=== PATIENT | female | born 1945 | race Caucasian/White ===

== ENCOUNTER 2017-04-09 07:45 | Inpatient (IN) ==
--- NOTE | 2017-04-08 20:51 | Discharge Summary ---
<Nataly Mazariegos L - Last Filed: 04/08/17 20:48> Date of Encounter: 04/08/17 - Discharge Diagnosis (1) Loosening of knee joint prosthesis Priority: Primary Status: Acute Qualifiers: Encounter type: initial encounter Qualified Code(s): T84.038A - Mechanical loosening of other internal prosthetic joint, initial encounter; Z96.659 - Presence of unspecified artificial knee joint (2) Atrial fibrillation Priority: Secondary Status: Acute Comments: On chronic anticoagulation - Xarelto 20mg - Continue this. Qualifiers: Atrial fibrillation type: unspecified Qualified Code(s): I48.91 - Unspecified atrial fibrillation (3) HTN (hypertension) Priority: Secondary Status: Chronic Qualifiers: Hypertension type: essential hypertension Qualified Code(s): I10 - Essential (primary) hypertension (4) Obesity Priority: Secondary Status: Chronic Qualifiers: Obesity type: unspecified obesity type Obesity severity: unspecified obesity severity Qualified Code(s): E66.9 - Obesity, unspecified (5) Chronic pain Priority: Secondary Status: Chronic Comments: Currently taking [place] 7.5/325 - QID - Last dose 03/18/17 - #120. Continue this for post-op pain control. Adding Compound cream. Qualifiers: Chronic pain type: other chronic pain Qualified Code(s): G89.29 - Other chronic pain - Discharge Medications Prescriptions: Gabapentin [Neurontin] 600 mg PO BID #8 tablet Gabapentin [Neurontin] 1,200 mg PO HS #3 tablet HYDROcodone/Acet 7.5/325 mg [[place] 7.5-325 mg] 1 tab PO Q4H PRN #18 tablet PRN Reason: Mild To Moderate Pain Home Medications: Lidocaine Patch [Lidoderm 5% patch] 1 each TP DAILY #30 adh..patch 04/08/17 [Rx] Cyprohepatdine [Periactin] 4 mg PO HS 04/09/17 [History] Diltiazem CD (24hr) [Cardizem CD] 180 mg PO DAILY 04/09/17 [History] Levothyroxine [Synthroid] 112 mcg PO 0630 04/09/17 [History] Metoprolol [Lopressor] 25 mg PO BID 04/09/17 [History] Pantoprazole Sodium [Protonix] 40 mg PO DAILY 04/09/17 [History] Rivaroxaban [Xarelto] 20 mg PO HS 04/09/17 [History] hydroCHLOROthiazide [Hydrochlorothiazide] 25 mg PO DAILY 04/09/17 [History] Gabapentin [Neurontin] 1,200 mg PO HS #3 tablet 04/10/17 [Rx] Gabapentin [Neurontin] 600 mg PO BID #8 tablet 04/10/17 [Rx] HYDROcodone/Acet 7.5/325 mg [[place] 7.5-325 mg] 1 tab PO Q4H PRN #18 tablet 04/10 [Rx] Allergies/Adverse Reactions: Allergies Betaine Allergy (Verified 04/09/17 08:38) Blister codeine Allergy (Verified 04/09/17 08:38) Nausea meperidine [From Demerol] Allergy (Verified 04/09/17 08:38) Dizziness Sulfa (Sulfonamide Antibiotics) Allergy (Verified 04/09/17 08:38) Rash Primary care physician: Moon Thrasher - Patient Status Disposition: Transfer Inpatient Rehab Fac Condition: Good - Discharge Instructions Follow Up With: Moon Thrasher [Primary Care Provider] - - Hospital Course Hospital course: Ms. Lee is a 71 year old female - Time Spent with Patient Total time spent providing and/or coordinating discharge services: <Abelino Cavanaugh - Last Filed: 04/11/17 13:39> Date of Encounter: 04/11/17 Time of Encounter: 13:38 - Discharge Diagnosis (1) Loosening of knee joint prosthesis Priority: Primary Status: Acute Qualifiers: Encounter type: subsequent encounter Qualified Code(s): T84.038D - Mechanical loosening of other internal prosthetic joint, subsequent encounter; Z96.659 - Presence of unspecified artificial knee joint (2) Atrial fibrillation Priority: Secondary Status: Acute Qualifiers: Atrial fibrillation type: unspecified Qualified Code(s): I48.91 - Unspecified atrial fibrillation (3) HTN (hypertension) Priority: Secondary Status: Chronic Qualifiers: Hypertension type: essential hypertension Qualified Code(s): I10 - Essential (primary) hypertension (4) Obesity Priority: Secondary Status: Chronic Qualifiers: Obesity type: unspecified obesity type Obesity severity: unspecified obesity severity Qualified Code(s): E66.9 - Obesity, unspecified (5) Chronic pain Priority: Secondary Status: Chronic Qualifiers: Chronic pain type: other chronic pain Qualified Code(s): G89.29 - Other chronic pain (6) Acute blood loss anemia Priority: Primary Status: Acute Primary care physician: Moon Thrasher - Patient Status Functional capacity at discharge: uses cane/walker Overall status at discharge: patient is progressing back to baseline - Hospital Course Hospital course: Ms. Lee is a 71 year old female The patient had an uneventful postoperative course. They received antibiotics and physical therapy and were discharged in stable condition. There will follow -up in the office in 2 weeks. Aspirin DVT prophylaxis - Time Spent with Patient Total time spent providing and/or coordinating discharge services:
--- NOTE | 2017-04-09 08:08 | History & Physical Report ---
Date of Encounter: 04/09/17 Time of Encounter: 08:08 24 Hour HP Update - Instructions Instructions: If the History and Physical is less than 30 days old and was completed prior to A.M. admission and or procedure and has NOT been updated on calendar day of procedure please complete this update prior to performing procedure. - Update Patient reports changes in Medical Condition: No Changes in examination, assessment, or condition: No Changes in Medication: No Preop tests/diagnostics Reviewed: Yes Surgery Remains Indicated: Yes Consent for Planned Operative Procedure(s) Verified: Yes - Pre-Operative Checklist Preoperative Checklist Indicated: No Prophylactic Antibiotic Ordered: Yes Is VTE Prophylaxis Indicated?: Yes
[2017-04-09] MEDS ORDERED: Albuterol 2.5 MG/3 ML NEBULIZER IH ONE (08:15)
[2017-04-09] MEDS ORDERED: Ringers Solution, Lactated 1,000 ML IVC SCH (08:15)
--- NOTE | 2017-04-09 08:29 | Anesthesia Evaluation PreOp ---
Date of Encounter: 04/09/17 Time of Encounter: 08:26 - Past History Planned Operation: Right Total Knee Revision Cardiac History: HTN, Arrhythmia (A-Fib) Pulmonary History: Snore, NELLIE Dx DAYCARE ASSISTANT History: Denies Any Significant HX Other Medical History: Thyroid, GERD, Other (obesity BMI=44.4) Anesthesia History: No Prior Anesthetic Complications, Past Anesthesia Alcohol Use: none Drug use: none Medications and Allergies Lidocaine Patch [Lidoderm 5% patch] 1 each TP DAILY #30 adh..patch 04/08/17 [Rx] Cyprohepatdine [Periactin] 4 mg PO HS 04/09/17 [History] Diltiazem CD (24hr) [Cardizem CD] 180 mg PO DAILY 04/09/17 [History] Gabapentin [Neurontin] 1,200 mg PO HS 04/09/17 [History] Gabapentin [Neurontin] 600 mg PO BID 04/09/17 [History] HYDROcodone/Acet 7.5/325 mg [[place] 7.5-325 mg] 1 tab PO Q6H PRN 04/09/17 [ History] Levothyroxine [Synthroid] 112 mcg PO 0630 04/09/17 [History] Metoprolol [Lopressor] 25 mg PO BID 04/09/17 [History] Pantoprazole Sodium [Protonix] 40 mg PO DAILY 04/09/17 [History] Rivaroxaban [Xarelto] 20 mg PO HS 04/09/17 [History] hydroCHLOROthiazide [Hydrochlorothiazide] 25 mg PO DAILY 04/09/17 [History] Allergies Betaine Allergy (Verified 04/09/17 08:38) Blister codeine Allergy (Verified 04/09/17 08:38) Nausea meperidine [From Demerol] Allergy (Verified 04/09/17 08:38) Dizziness Sulfa (Sulfonamide Antibiotics) Allergy (Verified 04/09/17 08:38) Rash - Meds/Allergy Pre-op Review Medications Reviewed: Yes Allergies Reviewed: Yes Beta Blockers on Current Med List: Yes If Beta Blockers taken, Date/Time (Last Dose taken): 04/09/2017 at 0500 Anesthesia Results - Labs Laboratory Tests 04/04/17 04/04/17 04/04/17 10:30 12:05 12:05 WBC 8.4 Hgb 9.4 L Hct 30.1 L Plt Count 374 PT 10.4 INR 1.0 APTT 28.8 Sodium 141 Potassium 3.6 BUN 17 Creatinine 0.80 - Imaging EKG: report reviewed (04/04/2017 A-Fib) Anesthesia Exam O2 Sat Height 1.5 m Height 1.5 m Height 1.5 m Weight 99.79 kg Weight 99.79 kg Weight 99.79 kg O2 Sat by Pulse Oximetry 97 O2 Sat by Pulse Oximetry 97 Vital Signs Temp Pulse Resp BP Pulse Ox 98.1 F 79 18 131/68 97 04/09/17 08:06 04/09/17 08:06 04/09/17 08:06 04/09/17 08:06 04/09/17 08:06 Height: 4'11'' Weight: 220 lbs NPO (# of Hours): 8 Pain Scale: 0 Pain Scale Used: Numeric (1 - 10) - HEENT Pupil (Motor): EOMI Mallampati: II Teeth: Edentulous Denture Type: Upper: Complete Oral Opening: Greater than 3 - DAYCARE ASSISTANT LOC: Oriented DAYCARE ASSISTANT Motor: Normal RUE, Normal LUE, Normal RLE, Normal LLE, Normal Face DAYCARE ASSISTANT Sensory: Normal: RUE, LUE, RLE, LLE, Face - Cardiac Rhythm: Irregular Murmur: None - Pulmonary Breath Sounds: bilateral Clear Respiratory Effort: Symmetrical Anesthesia Assess/Plan ASA Score: 3 Modified [place] Scale for Level of Consciousness: Cooperative, oriented, and tranquil Anesthetic Plan: General, Regional Monitoring Plan: Standard Monitors Recovery Plan: PACU
[2017-04-09] MEDS ORDERED: *HR* Propofol 200 MG/20 ML VIAL IVP ONE (08:32)
[2017-04-09] MEDS ORDERED: Lidocaine -MPF 2% 2 ML VIAL ONE ×2 (08:32→08:35)
[2017-04-09] MEDS ORDERED: *HR* FentaNYL (PF) 100 MCG/2 ML VIAL ONE ×2 (08:32→11:36)
[2017-04-09] MEDS ORDERED: Dexamethasone 4 MG/ML VIAL ONE (08:35)
[2017-04-09] MEDS ORDERED: Ondansetron 4 MG/2 ML VIAL ONE (08:35)
[2017-04-09] MEDS ORDERED: CeFAZolin Pre 2,000 MG/100 ML 2,000 MG/100 ML BAG IVPB ONE (08:46)
[2017-04-09] MEDS ORDERED: Bupivacaine/Clonidine Syringe 1 EACH SYRINGE ONE (08:51)
--- NOTE | 2017-04-09 09:54 | Anesthesia Procedures ---
Date of Encounter: 04/09/17 Time of Encounter: Procedures: Anesthesia - Nerve Block Procedure Date: 04/09/17 Time: : Checklist: Correct Patient Identifier, Correct procedure, History checked Correct side: Right Blood Thinner: No Monitor Applied: EKG, BP, Pulse Oximetry Supplemental Oxygen via Nasal Cannula (L/min): 2 Sedation: Fentanyl (mcg): 100 Indication: Post Op Analgesia Pre-op Neuro Deficits: No Block Type: Femoral, Other Catheter placed: No Sterile Technique: Yes Ultrasound used: Yes Anatomy identified: Yes Visual spread of Local: Yes Neuro Stimulation: Yes Nerve Stimulator Range: 0.2 - 0.4 mA Blood on Needle Aspiration: No Smooth Injection of Local: Yes Pain with Injection of Local: No Prep: Chlorhexadine Needle: 22 x 50 mm Stimuplex, 21 x 100 mm Stimuplex Local: 0.25% Bupivicaine w/Clonidine 20 mcg/cc, Ropivacaine (0.5 % with 8 of decadron) Volume (cc): 30 Number of Attempts: 1 Complications: None/effective block Vitals: vss
[2017-04-09] MEDS ORDERED: ROPIVACAINE HCL/PF 0.5% 30 ML VIAL ONE (11:19)
[2017-04-09] MEDS ORDERED: Acetaminophen IV 1,000 MG/100 ML INFUS..BTL ONE (12:24)
[2017-04-09] MEDS ORDERED: EPHEDrine 50 MG/ML VIAL ONE (12:27)
[2017-04-09] MEDS ORDERED: Ketorolac 30 MG/ML VIAL ONE (12:35)
--- NOTE | 2017-04-09 12:38 | Orthopedic Operative Note ---
Date of procedure: 04/09/17 Pre-op diagnosis: Aseptic loosening right total knee Post-op diagnosis: same Procedure: Procedure: Right revision total knee Estimated blood loss: 300 Hardware: Metal and polyethylene replacement. Biomet SSK femur: 65, 16 x 180 Tibia: 67, 14 x 40 6 mm medial and lateral augments Constrained Alice: 22 Exam Under anesthesia: Full flexion-extension significant varus valgus instability Procedural Notes: Significant varus valgus instability grossly loose tibial component. Loose femoral component. Operative procedure: The patient was brought to the operating room and placed on the operating room table. After general anesthesia was administered the operative knee was examined. Findings were noted in the exam under anesthesia. The operative extremity was prepped and draped in sterile surgical fashion. The patient received IV antibiotics prior to skin incision. A standard midline incision was made centered over the patella through the old incision. The incision was made through the skin and subcutaneous tissue. A medial parapatellar tendon approach was performed. Care was taken to preserve tissue along the medial aspect of the patella. And to protect the patella tendon. The deep MCL was released off the medial tibia. The infra patella fat pad was excised. Fluid was encountered this was normal joint fluid, Cultures were obtained and gram . The knee was brought into flexion the poly-was removed. The interface between the patient's femoral component and distal femur were disrupted with a osteotome and oscillating saw. Femoral component was loose and removed without significant bone loss. Attention was then turned to the tibial component. The same technique was used to remove the tibial component by disrupting the interface between the patient's tibial component and the patients proximal tibia. The tibial component was loose, was removed without significant bone loss. The tibia was sized to a 67 was reamed up to a 14 x 40 Trial had good fit and fixation. The femur was sized to a 65, was reamed up to a 16 x 80 The finishing guide was seated and the box cut was made. The trial had good fit and fixation. Both trial components were seated and the 22 constrained Alice was seated and secured. Acquired to 6 mm augments medial and lateral for stability. The knee had full flexion and full extension with no instability. Patella had excellent patella tracking. The trial components were removed. The knee sat for 2 minutes with a Betadine saline solution. It was irrigated out with 2 L of pulse irrigation. The components were assembled on the back table, the tibia cemented first followed by the femur. The 22 constrained liner was seated and secure. The knee was brought to full extension while the cement hardened. After the cement hardened the knee was irrigated out again. The extensor mechanism was closed with a running #2 Fiberwire suture and a running #2 PDS suture. The deep tissue was irrigated and closed deep with #1 PDS suture superficially with 0 PDS suture. The skin was closed with skin hossein. The patient was placed in a sterile dressing and postoperative brace. They were extubated and transferred to recovery room in stable condition. Anesthesia: GETLavinia Surgeon: Abelino Cavanaugh Software Implementation Specialist: Nataly Mazariegos Condition: stable Disposition: PACU
[2017-04-09] MEDS: *HR* HYDROmorphone (PF) 1 MG/ML SYRINGE IVP PRN ×4 (13:10→13:40)
[2017-04-09] MEDS ORDERED: *HR* HYDROmorphone (PF) 1 MG/ML SYRINGE ONE ×3 (13:10→14:01)
[2017-04-09 13:50] LABS: Hematocrit 24.1 % (35.3-44.9)
[2017-04-09 13:51] LABS: Hemoglobin 7.6 g/dL (11.5-15.4)
[2017-04-09] MEDS ORDERED: Gabapentin 300 MG CAPSULE PO ONE (13:58)
[2017-04-09] MEDS ORDERED: *HR* HYDROmorphone (PF) 1 MG/ML SYRINGE IVP PRN (13:59)
[2017-04-09] MEDS ORDERED: *HR* HYDROmorphone 2 MG/ML SYRINGE IVP ONE (13:59)
--- NOTE | 2017-04-09 13:59 | Anesthesia Evaluation Post Op ---
Date of Encounter: 04/09/17 Time of Encounter: 13:57 - Vital Signs Vital Signs: Vital Signs/O2 Sat/Glucose, Most Recent Temp Pulse Resp BP Pulse Ox 97.2 F L 73 16 106/72 98 04/09/17 13:35 04/09/17 13:55 04/09/17 13:55 04/09/17 13:45 04/09/17 13:55 - Lungs Lungs: Clear Ascult./Percussion - Airway Airway: Non-obstructed - Cardiovascular Baseline Rhythm - Mental Status Mental Status: Alert & Oriented, Answers Appropriately - Pain Pain Scale: 5 (mild-moderate pain when awake, sleeping intermittenly) - Nausea Vomiting Nausea Vomiting: Not Present - Hydration Hydration: NPO Notes: 04/09/17 13:58 pt having mild to moderate anterior knee pain, sleeping intermittently, being controlled by IV dilaudid, 300mg Gabapentin ordered. - Discharge PostOp Status: Transfer Patient to floor
[2017-04-09] MEDS ORDERED: Gabapentin 300 MG CAPSULE PO STA (14:00)
[2017-04-09] MEDS ORDERED: MOM Conc 10 ML UD.LIQ PO PRN (14:31)
[2017-04-09] MEDS ORDERED: Temazepam 15 MG CAPSULE PO PRN (14:31)
[2017-04-09] MEDS ORDERED: Ondansetron 4 MG/2 ML VIAL IVP PRN (14:31)
[2017-04-09] MEDS ORDERED: Naloxone 0.4 MG/ML INJ IVP PRN (14:31)
[2017-04-09] MEDS ORDERED: Sennosides 8.6 MG TABLET PO PRN (14:31)
[2017-04-09] MEDS ORDERED: *HR* OxyCODONE Immed Rel 5 MG TABLET PO PRN (14:31)
[2017-04-09] MEDS: *HR* Rivaroxaban 10 MG TABLET PO SCH (16:09)
[2017-04-09] MEDS: *HR* OxyCODONE Immed Rel 5 MG TABLET PO PRN ×2 (16:11→21:32)
[2017-04-09] MEDS ORDERED: *HR* Enoxaparin 30 MG/0.3 ML SYRINGE SQ SCH (18:00)
[2017-04-09] MEDS: Ringers Solution, Lactated 1,000 ML IVC SCH (18:02)
[2017-04-09] MEDS: ceFAZolin 2,000 MG in D5% in Water 100 ML IVPB SCH (18:02)
[2017-04-09] MEDS ORDERED: Furosemide 20 MG/2 ML VIAL IVP PRN (18:10)
[2017-04-09] MEDS: Gabapentin 400 MG CAPSULE PO SCH (21:31)
[2017-04-09] MEDS: Gabapentin 300 MG CAPSULE PO SCH (21:31)
[2017-04-09] MEDS: Cyprohepatdine 4 MG TABLET PO SCH (22:20)
[2017-04-10] MEDS: ceFAZolin 2,000 MG in D5% in Water 100 ML IVPB SCH
[2017-04-10] MEDS: *HR* OxyCODONE Immed Rel 5 MG TABLET PO PRN ×5 (02:41→19:47)
[2017-04-10 06:36] LABS: Hematocrit 28.3 % (35.3-44.9)
[2017-04-10 06:37] LABS: Hemoglobin 9.2 g/dL (11.5-15.4)
--- NOTE | 2017-04-10 06:43 | Orthopedics Progress Note ---
Date of Encounter: 04/10/17 Time of Encounter: 06:43 - Assessment and Plan (1) Loosening of knee joint prosthesis Current Visit: Yes Status: Acute Qualifiers: Encounter type: subsequent encounter Qualified Code(s): T84.038D - Mechanical loosening of other internal prosthetic joint, subsequent encounter; Z96.659 - Presence of unspecified artificial knee joint (2) Atrial fibrillation Current Visit: Yes Status: Acute Qualifiers: Atrial fibrillation type: unspecified Qualified Code(s): I48.91 - Unspecified atrial fibrillation (3) HTN (hypertension) Current Visit: Yes Status: Chronic Qualifiers: Hypertension type: essential hypertension Qualified Code(s): I10 - Essential (primary) hypertension (4) Obesity Current Visit: Yes Status: Chronic Qualifiers: Obesity type: unspecified obesity type Obesity severity: unspecified obesity severity Qualified Code(s): E66.9 - Obesity, unspecified (5) Chronic pain Current Visit: Yes Status: Chronic Qualifiers: Chronic pain type: other chronic pain Qualified Code(s): G89.29 - Other chronic pain (6) Acute blood loss anemia Current Visit: Yes Status: Acute Subjective Interval history: Patient was seen this morning doing well without complaints. Afebrile vital signs stable. Operative extremity: Neurovascularly intact Dressing clean dry and intact Calves nontender Assessment and plan: Continue with postoperative care Hemoglobin 9.2 after 2 units Objective Vital signs: Vital Signs Temp Pulse Resp BP Pulse Ox 04/10/17 05:49 98.6 F 75 16 105/68 94 04/10/17 02:39 98 F 88 15 111/74 95 04/10/17 02:20 98 F 79 15 123/78 97 04/10/17 01:38 97.6 F 76 16 114/75 96 04/09/17 23:30 103/61 04/09/17 23:21 98.6 F 78 95/62 95 04/09/17 22:33 97.6 F 73 15 116/67 96 04/09/17 22:00 98.3 F 75 15 120/51 95 04/09/17 21:48 98.3 F 75 16 121/70 95 04/09/17 21:28 98.4 F 72 15 104/64 97 04/09/17 17:16 98.2 F 85 18 106/55 94 04/09/17 16:44 98.0 F 76 18 89/58 95 04/09/17 16:12 97.1 F L 85 14 100/62 95 04/09/17 15:27 98.3 F 82 18 90/52 94 04/09/17 14:58 97.6 F 76 14 99/61 95 04/09/17 14:31 98.1 F 81 14 94/60 96 04/09/17 14:30 96 04/09/17 14:15 97.4 F L 73 16 106/62 96 04/09/17 14:05 97.4 F L 74 16 106/62 96 04/09/17 13:55 73 16 98 04/09/17 13:45 74 16 106/72 99 04/09/17 13:35 97.2 F L 63 16 106/61 100 04/09/17 13:25 63 16 103/61 100 04/09/17 13:15 60 16 100/83 100 04/09/17 13:05 97.5 F L 68 16 91/49 92 04/09/17 11:19 61 127/73 99 04/09/17 10:42 65 126/74 98 04/09/17 08:19 98.1 F 79 18 131/68 97 04/09/17 08:06 98.1 F 79 18 131/68 97 Intake and Output 04/09/17 04/09/17 04/10/17 15:59 23:59 07:59 Intake Total 100 / 100 100 / 100 670 / 670 Output Total 300 / 300 200 / 200 1200 / 1200 Balance -200 / -200 -100 / -100 -530 / -530 Intake: IV Fluids 100 / 100 100 / 100 100 / 100 Ancef Premix 2,000 MG/100 100 / 100 ML 2,000 mg In 100 ml @ 200 mls/hr IVPB PREOP ONE Rx#:[id number] Ancef 2,000 MG In 100 / 100 100 / 100 Dextrose 5% 100 ML @ 200 mls/hr IVPB Q8HR SARA Rx#: [id number] Oral 100 / 100 Blood Product 0 / 0 470 / 470 Rbcs Leuko Poor As-1 350 / 350 Unit [id number] Rbcs Leuko Poor As-1 0 / 0 120 / 120 Unit [id number] Output: Urine 200 / 200 1200 / 1200 Estimated Blood Loss 300 / 300 Other: Weight 99.79 kg - Labs CBC & BMP: 04/10/17 06:12 Labs: Abnormal lab results Hgb 9.2 g/dL (11.5-15.4) L D 04/10/17 06:12 Hct 28.3 % (35.3-44.9) L 04/10/17 06:12 - VTE Documentation of Mechanical Device: Venous foot pump, device Consult Discharge Plan - Plan Referrals: Moon Thrasher [Primary Care Provider] -
[2017-04-10 06:46] LABS: BUN/Creatinine Ratio 18 (6-26); Blood Urea Nitrogen 15 mg/dL (7-20); Calcium 8.8 mg/dL (8.6-10.8); Carbon Dioxide 27 mEq/L (19-29); Chloride 103 mEq/L (98-109); Glucose 139 mg/dL (70-99); Osmolality,Calculated 287 (280-300); Potassium 3.9 mEq/L (3.5-4.5); Sodium 137 mEq/L (136-145); eGFR For African Americans > 60 (> 60); eGFR For Non-African Americans > 60 (> 60)
[2017-04-10 07:49] LABS: Hematocrit 31.6 % (35.3-44.9); Hemoglobin 10.4 g/dL (11.5-15.4)
[2017-04-10] MEDS: Diltiazem CD (24hr) 180 MG CAPSULE PO SCH (09:29)
[2017-04-10] MEDS: hydroCHLOROthiazide 25 MG TABLET PO SCH (09:29)
[2017-04-10] MEDS: Gabapentin 300 MG CAPSULE PO SCH (09:29)
[2017-04-10] MEDS: 0.9 % Sodium Chloride 250 ML IVC SCH ×2 (17:30→17:31)
[2017-04-10] MEDS: *HR* Rivaroxaban 10 MG TABLET PO SCH (17:36)
[2017-04-10] MEDS: Ringers Solution, Lactated 1,000 ML IVC SCH (17:39)
[2017-04-10] MEDS: Gabapentin 400 MG CAPSULE PO SCH (20:55)
[2017-04-10] MEDS: Cyprohepatdine 4 MG TABLET PO SCH (20:55)
[2017-04-10] MEDS: *HR* HYDROmorphone (PF) 1 MG/ML SYRINGE IVP PRN (22:11)
[2017-04-11] MEDS: *HR* OxyCODONE Immed Rel 5 MG TABLET PO PRN (03:31)
[2017-04-11] MEDS: *HR* HYDROmorphone (PF) 1 MG/ML SYRINGE IVP PRN ×3 (04:23→13:11)
[2017-04-11 06:26] LABS: Hematocrit 26.9 % (35.3-44.9)
[2017-04-11 06:36] LABS: Hemoglobin 8.6 g/dL (11.5-15.4)
[2017-04-11 06:47] LABS: BUN/Creatinine Ratio 17 (6-26); Blood Urea Nitrogen 13 mg/dL (7-20); Calcium 8.5 mg/dL (8.6-10.8); Carbon Dioxide 30 mEq/L (19-29); Chloride 102 mEq/L (98-109); Glucose 111 mg/dL (70-99); Osmolality,Calculated 287 (280-300); Potassium 3.6 mEq/L (3.5-4.5); Sodium 138 mEq/L (136-145); eGFR For African Americans > 60 (> 60); eGFR For Non-African Americans > 60 (> 60)
--- NOTE | 2017-04-11 06:59 | Orthopedics Progress Note ---
Date of Encounter: 04/11/17 Time of Encounter: 06:59 - Assessment and Plan (1) Loosening of knee joint prosthesis Current Visit: Yes Status: Acute Qualifiers: Encounter type: subsequent encounter Qualified Code(s): T84.038D - Mechanical loosening of other internal prosthetic joint, subsequent encounter; Z96.659 - Presence of unspecified artificial knee joint (2) Atrial fibrillation Current Visit: Yes Status: Acute Qualifiers: Atrial fibrillation type: unspecified Qualified Code(s): I48.91 - Unspecified atrial fibrillation (3) HTN (hypertension) Current Visit: Yes Status: Chronic Qualifiers: Hypertension type: essential hypertension Qualified Code(s): I10 - Essential (primary) hypertension (4) Obesity Current Visit: Yes Status: Chronic Qualifiers: Obesity type: unspecified obesity type Obesity severity: unspecified obesity severity Qualified Code(s): E66.9 - Obesity, unspecified (5) Chronic pain Current Visit: Yes Status: Chronic Qualifiers: Chronic pain type: other chronic pain Qualified Code(s): G89.29 - Other chronic pain (6) Acute blood loss anemia Current Visit: Yes Status: Acute Subjective Interval history: Patient was seen this morning doing well without complaints. Afebrile vital signs stable. Operative extremity: Neurovascularly intact Dressing clean dry and intact Calves nontender Assessment and plan: Continue with postoperative care Hemoglobin 8.6 Objective Vital signs: Vital Signs Temp Pulse Resp BP Pulse Ox 04/11/17 04:55 98.7 F 99 16 120/80 98 04/10/17 23:16 98.1 F 89 14 129/80 100 04/10/17 20:57 100 16 140/85 04/10/17 20:49 99 04/10/17 19:12 98.6 F 82 18 128/86 99 04/10/17 14:56 98.2 F 78 18 102/65 98 04/10/17 11:13 98.5 F 74 18 125/79 96 Intake and Output 04/10/17 04/10/17 04/11/17 15:59 23:59 07:59 Intake Total 200 / 200 1100 / 1100 Output Total 500 / 500 250 / 250 600 / 600 Balance -300 / -300 850 / 850 -600 / -600 Intake: IV Fluids 1000 / 1000 Lactated Ringers 1,000 ML 1000 / 1000 @ 75 mls/hr IVC .[id number] SARA Rx#:[id number] Oral 200 / 200 100 / 100 Output: Urine 500 / 500 250 / 250 600 / 600 Other: Meal Lunch Dinner Percent of Meal Consumed 75% 25% Weight 101.2 kg Patient Weight 04/11/17 23:59 Weight 101.2 kg - Labs CBC & BMP: 04/11/17 06:07 04/11/17 06:07 Labs: Abnormal lab results Hgb 8.6 g/dL (11.5-15.4) L D 04/11/17 06:07 Hct 26.9 % (35.3-44.9) L 04/11/17 06:07 Carbon Dioxide 30 mEq/L (19-29) H 04/11/17 06:07 Glucose 111 mg/dL (70-99) H 04/11/17 06:07 Calcium 8.5 mg/dL (8.6-10.8) L 04/11/17 06:07 - VTE Documentation of Mechanical Device: Venous foot pump, device Consult Discharge Plan - Plan Referrals: Moon Thrasher [Primary Care Provider] - Prescriptions: Gabapentin [Neurontin] 600 mg PO BID #8 tablet Gabapentin [Neurontin] 1,200 mg PO HS #3 tablet HYDROcodone/Acet 7.5/325 mg [[place] 7.5-325 mg] 1 tab PO Q4H PRN #18 tablet PRN Reason: Mild To Moderate Pain
[2017-04-11] MEDS: hydroCHLOROthiazide 25 MG TABLET PO SCH (08:12)
[2017-04-11] MEDS: Gabapentin 300 MG CAPSULE PO SCH ×2 (08:12→13:11)
[2017-04-11] MEDS: Diltiazem CD (24hr) 180 MG CAPSULE PO SCH (08:12)
[2017-04-11] MEDS: Ringers Solution, Lactated 1,000 ML IVC SCH (08:13)
[2017-04-11] MEDS: 0.9 % Sodium Chloride 250 ML IVC SCH ×2 (08:13→12:59)
[2017-04-11 18:01] VITALS: BP 113/73
== END 2017-04-11 17:05 | DRG 467 ==
LOC: SAMDAY 07:45 → 3NENU 14:46
PROVIDERS: ADMIT Orthopaedic Surgery; ATTEND Orthopaedic Surgery